=== PATIENT | male | born 1975 | race Caucasian/White ===

== ENCOUNTER 2018-10-01 19:01 | Emergency (ER) | payer OTHER ==
--- NOTE | 2018-10-01 19:32 | EDM.PDOC ---
ED HPI GENERAL MEDICAL PROBLEM - General Chief Complaint: General Stated Complaint: CHEST PAIN Time Seen by Provider: 10/01/18 19:05 Source of Information: Reports: Patient - History of Present Illness INITIAL COMMENTS - FREE TEXT/NARRATIVE: Patient comes into the emergency department with complaints of chest discomfort. Patient states that the chest discomfort has been going on now for approximately one week. Patient states that it is a dull pressure sensation across his chest into both arms. He states that it has not gotten any better or worse over the course of the week. He has stated today that after he was working in the yard he began to get dizzy and lightheaded as well. This resolved when he concluded and had water. However the chest discomfort did not change. His does have some medical [place] at home and did take his blood pressure night and decided to bring the patient emergency department. Patient is not been seen by his primary care provider or any other providers regarding this. Patient does not have a history of cardiovascular disease. Patient has not taken any medications. Patient cannot describe any symptoms that make the discomfort feel better or worse. She denies any feelings of shortness of breath , lightheaded, dizziness, urinary frequency/burning, lower extremity swelling. Onset: Gradual Location: Reports: Chest Quality: Reports: Ache, Dull Severity: Mild Improves with: Reports: None Worsens with: Reports: None Associated Symptoms: Reports: No Other Symptoms Mid-Sternal Chest Pain Score (Numeric/FACES): 3 - Related Data Allergies Allergy/AdvReac Type Severity Reaction Status Date / Time No Known Allergies Allergy Verified 10/01/18 19:20 Home Meds: Home Meds . [No Known Home Meds] 10/01/18 [History] Past Medical History - Past Health History Medical/Surgical History: Denies Medical/Surgical History Social & Family History - Tobacco Use Smoking Status *Q: Never Smoker ED ROS GENERAL - Review of Systems Review Of Systems: ROS reveals no pertinent complaints other than HPI. Constitutional: Reports: No Symptoms HEENT: Reports: No Symptoms Respiratory: Reports: No Symptoms Cardiovascular: Reports: Chest Pain, Palpitations. Denies: Blood Pressure Problem, Claudication, Dyspnea on Exertion, Edema, Syncope GI/Abdominal: Reports: No Symptoms : Reports: No Symptoms Musculoskeletal: Reports: No Symptoms Skin: Reports: No Symptoms ED EXAM, GENERAL - Physical Exam Exam: See Below Exam Limited By: No Limitations General Appearance: Alert, WD/WN, No Apparent Distress Head: Atraumatic, Normocephalic Neck: Normal Inspection, Supple, Non-Tender, Full Range of Motion Respiratory/Chest: No Respiratory Distress, Lungs Clear, Normal Breath Sounds, No Accessory Muscle Use, Chest Non-Tender Cardiovascular: Normal Peripheral Pulses, Regular Rate, Rhythm, No Edema GI/Abdominal: Normal Bowel Sounds, Soft, Non-Tender, No Distention, No Abnormal Bruit Back Exam: Normal Inspection, Full Range of Motion Extremities: Normal Inspection, Normal Range of Motion, No Pedal Edema, Normal Capillary Refill Neurological: Alert, Oriented, Normal Gait Psychiatric: Normal Affect, Normal Mood Skin Exam: Warm, Dry, Intact Course - Vital Signs Last Recorded V/S: Last Vital Signs Temp 36.6 C 10/01/18 19:05 Pulse 97 10/01/18 19:05 Resp 16 10/01/18 19:05 BP 134/86 10/01/18 20:10 Pulse Ox 99 10/01/18 19:05 - Orders/Labs/Meds Orders: Active Orders 24 hr Category Date Time Status EKG Documentation Completion [RC] STAT Care 10/01/18 19:23 Active Labs: Laboratory Tests 10/01/18 10/01/18 10/01/18 Range/Units 19:37 19:37 19:37 WBC 9.0 (4.0-10.0) x10^3/uL RBC 5.32 (4.5-6.0) x10^6/uL Hgb 16.5 (14.0-18.0) g/dL Hct 45.9 (40.0-52.0) % MCV 86.3 (78.0-93.0) fL MCH 31.0 (26.0-32.0) pg MCHC 35.9 (32.0-36.0) g/dL RDW Coeff of [place] 13.0 (10.0-15.0) % Plt Count 200 (130-400) x10^3/uL Neut % (Auto) 65.8 (50.0-80.0) % Lymph % (Auto) 25.8 (25.0-50.0) % [place] % (Auto) 7.5 (2.0-11.0) % Eos % (Auto) 0.6 (0.0-4.0) % Baso % (Auto) 0.3 (0.2-1.2) % D-Dimer, Quantitative < 0.19 (<=0.58) mg/LFEU Sodium 142 (136-145) mmol/L Potassium 3.4 L (3.5-5.1) mmol/L Chloride 103 (98-107) mmol/L Carbon Dioxide 25 (21-32) mmol/L Anion Gap 17.4 (10-20) mmol/L BUN 18 (7-18) mg/dL Creatinine 1.0 (0.70-1.30) mg/dL Est Cr Clr Drug Dosing TNP Estimated GFR (MDRD) > 60 Glucose 134 H (74-106) mg/dL Calcium 9.2 (8.5-10.1) mg/dL Corrected Calcium 8.96 (8.5-10.1) mg/dL Total Bilirubin 0.9 (0.2-1.0) mg/dL AST 20 (15-37) U/L ALT 34 (16-63) U/L Alkaline Phosphatase 79 (46-116) U/L Creatine Kinase 120 (39-308) U/L Troponin I < 0.017 (<=0.056) ng/mL NT-Pro-B Natriuret Pep 28 (<=125) pg/mL Total Protein 7.8 (6.4-8.2) g/dL Albumin 4.3 (3.4-5.0) g/dL Globulin 3.5 Albumin/Globulin Ratio 1.23 Departure - Departure Time of Disposition: 20:30 Disposition: Home, Self-Care 01 Condition: Good Clinical Impression: Chest pain due to gastrointestinal reflux disease, Anxiety Acid reflux Qualifiers: Esophagitis presence: without esophagitis Qualified Code(s): K21.9 - Gastro- esophageal reflux disease without esophagitis - Discharge Information *PRESCRIPTION DRUG MONITORING PROGRAM REVIEWED*: Not Applicable *COPY OF PRESCRIPTION DRUG MONITORING REPORT IN PATIENT BENITA: Not Applicable Instructions: Food Choices for Gastroesophageal Reflux Disease, Adult, Panic Attack, [id number], Nonspecific Chest Pain, Gastroesophageal Reflux Disease, Adult, [id number] Referrals: Zabrina Green PA-C [Primary Care Provider] - Forms: ED Department Discharge Additional Instructions: 1. rest 2. increase your water intake 3. Take a daily PPI (Zantac) for 2 weeks to see if symptoms begin to improve 4. Also log your symptoms, food you consume and time of daily to show your PCP. 5. Talk with your PCP regarding fpc management of anxiety medications 6. Activity and diet as tolerated 7. Follow up with PCP within 2-3 weeks or sooner if symptoms progress 8. Call with any questions or concern. - Problem List Review Problem List Initiated/Reviewed/Updated: Yes - My Orders Last 24 Hours: My Active Orders 10/01/18 19:23 EKG Documentation Completion [RC] STAT - Assessment/Plan Last 24 Hours: My Active Orders 10/01/18 19:23 EKG Documentation Completion [RC] STAT Assessment:: 1. chest pain Plan: 1. Labs completed in the ER. Results reviewed with patient 2. EKG completed in the ER. Results reviewed with patient 3. X-ray completed in the emergency department. Results reviewed patient 4. Education provided regarding medication, activity, diet, and follow up care provided. 5. All questions and concerns addressed prior to patient discharge
--- NOTE | 2018-10-01 19:45 | CR ---
[id number] RAD/RAD Chest PA or AP 1V EXAM: RAD Chest PA or AP 1V INDICATION: CHEST PAIN COMPARISON: None. DISCUSSION: Cardiomediastinal silhouette is normal in size and contour. No infiltrate, effusion, pneumothorax, or edema. IMPRESSION: No significant cardiopulmonary abnormality. José Miguel Mace DO 10/01/18 1944 Thank you for allowing us to participate in the care of your patient.
[2018-10-01 20:17] LABS: CHLORIDE,CL 103 mmol/L (98-107); SODIUM,NA 142 mmol/L (136-145)
[2018-10-01 20:18] LABS: ANION GAP 17.4 mmol/L (10-20)
== END 2018-10-01 20:38 | disposition home or self-care (01) ==
LOC: VM.ED 19:01
DX: K21.9 Gastro-esophageal reflux disease without esophagitis (principal); F41.9 Anxiety disorder, unspecified
CPT/HCPCS: 36415; 71045; 80053; 82550; 83880; 84484; 85025; 85379; 93005; 99285-25